=== PATIENT | female | born 1990 | race African-American/Black ===

== ENCOUNTER 2017-03-29 09:00 | Outpatient (CLI) | payer OTHER ==
--- NOTE | 2017-04-01 07:04 | CONSULTATION REPORT ---
DATE OF CONSULTATION: 03/29/2017 CHIEF COMPLAINT: 1. Decreased movement, fall. HISTORY OF PRESENT ILLNESS: The patient is a 27-year-old female who presented to labor and delivery as a G3, P1, status post fall with [place] day prior, [place]. She [place] onto her back and since then she had not felt the baby move. She was coming in for evaluation. She has been seen for by [facility] for high risk . She is a G3, P1, with a previous third trimester miscarriage and also a 28-week preemie. She has been followed at [facility], where they gave her a cerclage and have been checking her weekly. She, since her fall, has had some back pain and left upper pain, a little bit of left lower abdomen pain as well. She had 1 episode of spotting, mild, which she says is not unusual during her , and she is also with occasional [employer], but nothing that is consistent and no increase in her symptoms at this time. MEDICAL/SURGICAL HISTORY: She has generally been healthy. She has had some chronic low back pain. Her past surgical history: Unremarkable. FAMILY HISTORY: Noncontributory. SOCIAL HISTORY: She smokes a few cigarettes a day. She denies alcohol or drug use. She works at [employer]. REVIEW OF SYSTEMS: She denies fevers, chest pain. She has chronic low back pain. Denies vaginal discharge or urinary discharge. PHYSICAL EXAMINATION: GENERAL: She is an alert female who appears to be in no significant distress. VITAL SIGNS: Her blood pressure is 133/84, heart rate of 106, respirations 18, temperature 97.8. HEENT: Extraocular movements intact. Pupils equal, round, and reactive to light. Oropharynx is clear. NECK: Supple without lymphadenopathy. LUNGS: Clear to auscultation bilaterally. HEART: Regular rate and rhythm. ABDOMEN: Soft, slightly tender in the left lower abdomen. GENITOURINARY: Deferred. RECTAL: Deferred. BREAST: Deferred. NEUROLOGIC: Cranial nerves II-XII intact. LAB/IMAGING: Her heart tones appear appropriate for her gestational age with 135 baseline and no contractions. IMPRESSION/PLAN: 1. Intrauterine at 29 weeks' gestation with an estimated date of confinement of 06/14/2017. She presented with decreased movement. However, since she has been on labor and delivery floor she has felt the baby move and she has had reassuring heart tones. It has been 20+ hours since her fall and she is not having any significant bleeding or contractions at this time. She has got a known cerclage. Plan for discharge: At this time, I did not do a cervical evaluation with the idea of not wanting to stir things up at all and she currently not having any symptoms of labor. I have made the recommendation that if she were to feel she was going into active labor that she should go to an institution other than ours if she is before 34 weeks because at [facility] or [facility] they would be able to care for her symptoms and a possible labor better than us, as we are a facility for 34 weekers and above. I have also made the recommendation strongly that she quit smoking, as this will increase her risk of labor as well as a negative outcome overall and with her back pain I will have her follow up with her regular provider, take Tylenol as needed, and if she has any concerns either return to the hospital for further evaluation in the emergency department for her back or to have her evaluated by her regular providers at her other her facility.
== END 2017-03-29 10:25 | disposition home or self-care (01) ==
LOC: OBC SRH 09:00 → OB SRH 09:04 → OBC SRH 10:25
PROC: 4A0HXCZ Measurement of Products of Conception, Cardiac Rate, External Approach (ICD-10-PCS; principal; 2017-03-29)
DX: O36.8120 Decreased fetal movements, second trimester, not applicable or unspecified (principal); W19.XXXA Unspecified fall, initial encounter; Y93.19 Activity, other involving water and watercraft; Y92.838 Other recreation area as the place of occurrence of the external cause; Y99.8 Other external cause status; Z3A.29 29 weeks gestation of pregnancy
CPT/HCPCS: 40003; 40016